=== PATIENT | male | born 1990 | race Caucasian/White ===

== ENCOUNTER 2024-08-14 09:22 | Emergency (ER) | payer SELFPAY ==
--- OUTSIDE RECORDS SUMMARY | 2024-08-14 09:33 | XMS_ITS | Referral Summary ---
Author Organization [facility] Address [address] [place] [address] Care Team Providers Care Structural Manager Name Role Phone Dunia Ratliff Primary Care Provid er Allergies No known active allergies Medications amoxicillin (AMOXIL) 500 mg tablet TAKE 2 TABLETS NOW THEN 1 TABLET BY MOUTH THREE TIMES DAILY FOR 7 DAYS 01/05/2022 Active Active Problems Problem Noted Date Diagnosed Date Asthma (CMD) 01/18/2022 Immunizations Immunization Administration Dates Next Due Dtap, Unspecified 11/27/1997, 7,07/11/1992,05/14,03/25/1992 Hep B, Adolescent or Pediatric 10/08/2007 Hepatitis A pediatric/adoles cent (VAQTA PEDS) 1Y-18Y 10/08/2007 HiB, Unspecified 07/11/1992,05/14/1992, 3 Influenza,split virus, trivalent, PF 02/18/2009 MMR 11/18/1996,12/28/1992 Meningococcal MCV4P 10/08/2007 Moderna SARS-CoV-2 Primary S eries 12+ yrs 12/04/2020,11/06/2020 Novel Influenza [id number] 02/18/2009 Pneumococcal Conjugate PCV 7 01/24/2005 Polio, Unspecified 11/05/2001, 8,11/18/1996,05/14,03/25/1992 TDAP VACCINE (BOOSTRIX,ADACEL) 7Y+ 10/08/2007 Varicella SQ (VARIVAX) 1Y+ 10/08/2007,11/18/1996 Social History Tobacco Use Types Packs/Day Years Used Date Smoking Tobacco: Never Smokeless Tobacco: Never Tobacco Cessation:Counseling Given: Not Answered Alcohol Use Standard Drinks/Week Comments Not Currently 0 (1 standard drink = 0.6 oz pur e alcohol) PHQ-2 Answer Date Recorded Patient Health Questionnaire-2 Score 2 01/18/2022 Sex and Gender Information Value Date Recorded Sex Assigned at Male 04/07/2018 1:00 PM EST Legal Sex Male 4:07 PM EDT Gender Identity Not on file Sexual Orientation Not on file Last Filed Vital Signs Vital Sign Reading Time Taken Comments Blood Pressure 128/74 01/18/2022 8:00 AM EST Pulse 66 01/18/2022 8:00 AM EST Temperature 37.1 C (98.7 F) 01/18/2022 8:00 AM EST Respiratory Rate 16 01/18/2022 8:00 AM EST Oxygen Saturation 98% 01/18/2022 8:00 AM EST Inhaled Oxygen Concentration - - Weight 75.8 kg (167 lb) 01/18/2022 8:00 AM EST Height 177.8 cm (5' 10) 01/18/2022 8:00 AM EST Body Mass Index 23.96 01/18/2022 8:00 AM EST Plan of Treatment Not on file Insurance BS Care Teams Structural Manager Relationship Specialty Start Date End Date Dunia Ratliff PA [address] [facility] [address] [place] [address] PCP - General Physician Manager Policy 01/18/22
--- OUTSIDE RECORDS SUMMARY | 2024-08-14 09:33 | XMS_ITS | Clinical Summary ---
Author Organization Replaced By [facility] Address [address] [place] [id number] Care Team Providers Care Diplomatic Interpreter/Translator Name Role Phone Dunia Ratliff Primary Care [...] S eries 12+ yrs 12/04/2020,11/06/2020 Novel Influenza [id number] 02/18/2009 Pneumococcal Conjugate PCV 7 01/24/2005 Polio, Unspecified 11/05/2001, 8,11/18/1996,05/14,03/25/1992 TDAP VACCINE (BOOSTRIX,ADACEL) 7Y+ 10/08/2007 Varicella SQ (VARIVAX) 1Y+ 10/08/2007,11/18/1996 Family History Medical History Relation Comments Heart disease Mother Hypertension Mother Stomach cancer Paternal Aunt Relation Status Comments Mother Paternal Aunt Social History Tobacco Use Types Packs/Day Years [...] 01/18/2022 8:00 AM EST Plan of Treatment Health Maintenance Due Date Last Done Comments HIV Screening 12/17/2009 Hepatitis C Screening 12/17/2009 Pneumococcal Vaccine: Pediatrics (0 to 5 years) and At-Risk Patients (6-49 Years) (1 of 2 - PCV) 12/17/2010 01/24/2005 DTaP/Tdap/Td Vaccines (7 - Td or Tdap) 10/07/2017 10/08/2007, 11/27/1997, 11/18/1996, Additional history exists Comprehensive Annual Visit 01/18/2023 01/18/2022 Depression Screening 01/18/2023 01/18/2022, 01/19/20 22 Influenza Vaccine (#1) 2023 02/18/2009, 2008 COVID-19 Vaccine (3 - season) 2023 12/04/2020, 11/06/2020 ZOSTER VACCINE (1 of 2) 12/17/2041 10/08/2007, 11/18 Adult RSV (60+ Years or ) (1 - 1-dose 75+ series) 12/17/2066 HIB Vaccines Aged Out 07/11/1992, 06/1992, 03/25/1992 No longer eligible based on patient's age to complete this topic IPV Vaccines Completed 11/05/2001, 11/11, 11/18/1996, Additional history exists Hepatitis A Vaccines Discontinued 10/08/2007 Hepatitis B Vaccines Discontinued 10/08/2007 Meningococcal Conjugate (ACWY) Vaccine Aged Out 10/08/2007 No longer eligible based on patient's age to complete this topic Varicella Vaccines Completed 10/08/2007, 11/18/1996 HPV Vaccines Aged Out No longer eligi ble based on patient's age to complete this topic Meningococcal B Vaccine Aged Out No l onger eligible based on patient's age to complete this topic Rotavirus Vaccines Aged Out No longer eligible based on patient's age to complete this topic Insurance Care Teams Diplomatic Interpreter/Translator Relationship Specialty Start Date End Date Dunia Ratliff PA [address] [facility] [address] [facility] [place] [address] PCP - General Physician Ophthalmologist Retina Specialist 01/18/22
[2024-08-14 09:43] VITALS: BP 127/81; PULSE 74; RESP 16; TEMP 36.8; O2SAT 97
--- NOTE | 2024-08-14 10:23 | ED_ITS ---
HPI - Dental/Oral General Chief complaint: Dental/Oral Stated complaint: Dental Pain History of Present Illness HPI Narrative: Patient is a 33-year-old male who presents to urgent care with complaints of L upper tooth pain. He reports the symptoms started yesterday. Pt is here from out of town so he does not have a dentist or primary care provider. He reports the painful tooth in his top #3 tooth. Pt denies any recent fevers, difficulty swallowing, or neck stiffness. He is unsure whether or not he has had previous dental work done on this tooth. Related Data Allergies Allergy/AdvReac Type Severity Reaction Status Date / Time ibuprofen AdvReac Intermediate chest pain Verified 08/14/24 10:22 Review of Systems Review of Systems: All systems reviewed & are unremarkable except as noted in HPI and below Exam Narrative: GENERAL: Well appearing, well-nourished, non-toxic, in no acute distress. HEAD: , visible decay to tooth #3, gum surrounding #3 red and swollen with visible abscess to outer gum. No visible discharge or bleeding. NECK: Supple. No adenopathy, no masses. RESPIRATORY: Airway patent, respirations nonlabored. Clear to auscultation bilaterally, no rales, rhonchi, wheezing. CARDIOVASCULAR: Regular rate and rhythm without murmurs, rubs, or gallops. Peripheral pulses 2+ and equal bilaterally. ABDOMINAL: Soft, nontender, nondistended, no hepatosplenomegaly. Normoactive BS. MUSCULOSKELETAL: Moves all extremities. Strength/ROM intact without gross deformities. SKIN: Warm, dry, normal color. No rashes. Course Course Level of Care: Express Care Visit Vital Signs Vital signs: Vital Signs Temperature 36.8 C 08/14/24 09:43 Pulse Rate 74 08/14/24 09:43 Respiratory Rate 16 08/14/24 09:43 Blood Pressure 127/81 08/14/24 09:43 Pulse Oximetry 97 08/14/24 09:43 Oxygen Delivery Room Air 08/14/24 09:43 Temperature 36.8 C 08/14/24 09:43 Pulse Rate 74 08/14/24 09:43 Respiratory Rate 16 08/14/24 09:43 Blood Pressure 127/81 08/14/24 09:43 Pulse Oximetry 97 08/14/24 09:43 Oxygen Delivery Room Air 08/14/24 09:43 MDM - Dental/Oral MDM Narrative Medical decision making narrative: Patient is a 33-year-old male who presents to urgent care with complaints of L upper tooth pain. He reports the symptoms started yesterday. Pt is here from out of town so he does not have a dentist or primary care provider. He reports the painful tooth in his top #3 tooth. Pt denies any recent fevers, difficulty swallowing, or neck stiffness. He is unsure whether or not he has had previous dental work done on this tooth. Pt has been taking Tylenol for pain control. His aunt gave him a [place] and Gabapentin last night to try to help relieve his pain. Diagnosis: tooth abscess, left tooth pain Consults: dentist (outpatient) Patient Education/Shared MDM: Results of examination shared with patient. He endorses he's allergies to ibuprofen, so pt was advised to take Tylenol for pain control. Pt will also be discharged home with a prescription for viscous lidocaine. Patient strongly advised to maintain hydration status upon discharge and follow-up with a dentist as soon as possible. He will be discharged home with a prescription for Augmentin. Strict return precautions provided. Patient verbalized understanding and is in agreement with plan. Vital signs stable at time of discharge. All questions answered. Differential Diagnosis Differential diagnosis: Likely dental caries, toothache, dental abscess and fracture of tooth Discharge Plan Discharge Clinical Impression: Dental abscess, Dental caries, Toothache Patient Disposition: Home Condition: Stable Instructions: Antibiotic Form, Dental Abscess (ED) Additional Instructions: Please present to the ER with any worsening symptoms. Follow-up with a primary care provider and dentist as soon as possible. Take all medications as prescribed. You may continue taking Tylenol for pain control. Please complete your full dose of antibiotics. You may also use viscous lidocaine for pain control. Patient Language: Romanian Prescriptions: New amoxicillin-pot clavulanate 875-125 mg tablet 1 tablet PO Q12H Qty: 20 0RF lidocaine HCl [Lidocaine Viscous] 2 % solution 1 applic mucous membrane QID PRN (Reason: pain) Qty: 300 0RF Follow-up/Referrals: PHYSICIAN,CLOTH BLEACHING RANGE BACK TENDER [Primary Care Provider] - Stand Alone Forms: Work/School Release IP Time of Disposition: 10:33
== END 2024-08-14 10:36 | disposition home or self-care (01) ==
PROVIDERS: Emergency Provider Registered Nurse
DX: K04.7 Periapical abscess without sinus (principal); K02.9 Dental caries, unspecified
CPT/HCPCS: 99203; G0463

== ENCOUNTER 2024-10-16 08:07 | Emergency (ER) | payer OTHER, SELFPAY ==
--- OUTSIDE RECORDS SUMMARY | 2024-10-16 08:11 | XMS_ITS | Referral Summary ---
Author Organization [facility] Address [address] [place] [address] Care Team Providers Care Gill Tender Name Role Phone Dunia Ratliff Primary Care [...] S eries 12+ yrs 12/04/2020,11/06/2020 Novel Influenza [id number] 02/18/2009 Pneumococcal Conjugate PCV 7 01/24/2005 Polio, [...] Not on file Insurance BS Care Teams Gill Tender Relationship Specialty Start Date End Date Dunia Ratliff PA [address] [facility] [address] [place] [address] PCP - General Physician Object Oriented Programmer 01/18/22
--- OUTSIDE RECORDS SUMMARY | 2024-10-16 08:11 | XMS_ITS | Clinical Summary ---
Author Organization [facility] Address [address] [place] [id number] Care Team Providers Care Shipping And Receiving Clerk Name Role Phone Dunia Ratliff Primary Care [...] S eries 12+ yrs 12/04/2020,11/06/2020 Novel Influenza [id number] 02/18/2009 Pneumococcal Conjugate PCV 7 01/24/2005 Polio, [...] 10/07/2017 10/08/2007, 11/27/1997, 11/18/1996, Additional history exists HPV Vaccines (1 - 3-dose SCDM series) 12/17/2018 Comprehensive Annual Visit 01/18/2023 01/18/2022 Depression Screening 01/18/2023 01/18/2022, 01/19/20 22 COVID-19 Vaccine ( - season) 2023 12/04/2020, 11/06/2020 Influenza Vaccine (#1) 2024 02/18/2009, 2008 Adult RSV (60+ Years or ) (1 [...] this topic Varicella Vaccines Completed 10/08/2007, 11/18/1996 Meningococcal B Vaccine Aged Out No l onger eligible based on patient's age to complete this topic Rotavirus Vaccines Aged Out No longer eligible based on patient's age to complete this topic Insurance BS Care Teams Shipping And Receiving Clerk Relationship Specialty Start Date End Date Dunia Ratliff PA [address] [place] [id number] PCP - General Physician Call Taker 01/18/22
[2024-10-16 08:13] VITALS: BP 136/79; PULSE 60; RESP 16; TEMP 36.4; O2SAT 100
--- NOTE | 2024-10-16 08:14 | ED_ITS ---
HPI - Back Pain/Injury General Chief Complaint: Wound/Laceration Stated Complaint: Neck and Back Pain Time Seen by Provider: 10/16/24 08:10 Source: patient Mode of arrival: ambulatory Limitations: no limitations History of Present Illness HPI Narrative: Patient is a 33-year-old male who presents with neck pain after pulling something heavy at work yesterday. Patient has taken naproxen, Tylenol and used ice and heat with only mild relief. Patient denies any numbness, tingling or weakness to extremities. Denies any trauma to neck. Related Data Allergies Allergy/AdvReac Type Severity Reaction Status Date / Time ibuprofen AdvReac Intermediate chest pain Verified 10/16/24 08:15 Review of Systems Review of Systems: All systems reviewed & are unremarkable except as noted in HPI and below Constitutional: Constitutional: Denies body ache(s), Denies chills, Denies fatigue, Denies fever(s), Denies headache(s), Denies malaise and Denies weakness Eyes: Eyes: Denies blurry vision, Denies irritation and Denies loss of vision ENT: Denies otalgia, Denies headache(s), Denies nasal discharge, Denies sinus pain and Denies sore throat Cardiovascular: Cardiovascular: Denies chest pain, Denies irregular heart rhythm and Denies dyspnea Respiratory: Respiratory: Denies dyspnea Gastrointestinal: Gastrointestinal: Denies abdominal pain, Denies melena, Denies hematochezia, Denies diarrhea, Denies nausea and Denies vomiting Musculoskeletal: Musculoskeletal: Denies back pain, Denies myalgias, Denies arthralgias and Reports neck pain Integumentary/Breasts: Skin/Breast: Denies pruritus and Denies rash Neurologic: Denies headache(s), Denies loss of vision and Denies weakness Psychiatric: Psychiatric: Reports no additional psychiatric complaints Endocrine: Endocrine: Denies fatigue PMFSH Comments At time of signature, agree with nursing past medical, surgical, social and family history. There is no relevant family history pertinent to the presenting complaint. Exam Const: General: cooperative, healthy appearing, comfortable, no acute distress and well nourished Nutritional Appearance: well nourished Orientation/c onsciousness: patient oriented x3 Limitations: no limitations HENMT: Head: normal to inspection, normocephalic and atraumatic Ears: hearing grossly normal bilaterally and external ears normal Face/Nose/Sinus: Normal external nose present, normal facial exam and face symmetric Face and sinus: normal facial exam and face symmetric Mouth: Yes lip normal Eyes: General: appearance normal, both eyes and all related structures Alignment and Position: alignment normal and position normal Periorbital: periorbital findings normal Eyelids: eyelids normal Pupils: Equal, round and reactive pupils present EOM: EOMs intact bilaterally Neck: Neck: normal visual inspection, full ROM and supple Chest: Chest palpation & inspection: normal inspection of the chest Resp: Effort & Inspection: normal respiratory effort and able to speak in complete sentences Auscultation: clear to auscultation bilaterally Cardio: Rate: regular rate Rhythm: regular rhythm Heart sounds: S1 normal heart sound present and S2 normal heart sound present GI: Inspection: normal to inspection Back/Spine/Pelvis: Cervical Spine: normal cervical lordosis, cervical muscular tenderness (Bilaterally, left worse than right), pain with cervical ROM (Muscular pain with looking up) and No Cervical spine tenderness Thoracic/Lumbar Spine: thoracic and lumbar spine normal to inspection, thoraco- lumbar ROM normal, No paraspinal muscle tenderness, No thoracic spinal tenderness and No lumbar spinal tenderness Skin: General skin exam: normal color and no rashes or lesions noted Neuro: General: patient oriented x3 and moves all extremities Cranial nerves: Yes Equal, round and reactive pupils present Speech: normal speech Gait exam (Neuro): Normal gait present Motor exam (neuro): 5/5 motor strength present throughout, Normal motor muscle tone present throughout and Motor abnormalities not present Sensory Exam: normal sensation Extrem: General: normal to inspection, full ROM and no edema Psych: Appearance: grossly normal and well kempt Mental Status: mental status grossly normal Speech and movement: Normal speech and movement present Affect: normal affect Attitude: cooperative Thought process: Normal thought process present Course Course Emergency Course: Patient is aware of diagnosis, understands and agrees to treatment plan. Anticipatory guidance given. Patient agrees to follow-up as directed and is aware of reasons to seek care at the emergency department. Portions of this record may have been created with voice recognition software Level of Care: Express Care Visit Vital Signs Vital signs: Reviewed MDM - Back Pain/Injury MDM Narrative Medical decision making narrative: No surface trauma, open wounds, or spasm, trachea midline, nontender over larynx. No bony tenderness, step-off or deformity to firm palpation at the posterior midline. FROM with mild pain along with soft tissue/muscle tenderness bilaterally Pt well hydrated appearing, in no respiratory distress, hemodynamically stable. Recommend supportive care. The patient is stable at time of discharge the clinical impression was discussed and the patient was given the opportunity to ask questions, which were addressed as completely as possible given the i nformation available at present. Anticipatory guidance and return to care precautions were discussed and the importance of primary care follow-up was stressed and encouraged. The patient voiced understanding of the plan, indications to return, and the need for follow-up. Exam findings show no acute concerns or changes Patient is appropriate for outpatient treatment and follow-up. Differential Diagnosis Differential diagnosis: Likely other (Cervical strain, cervical radiculopathy) Medical Records Attestation: I reviewed the patient's medical records. Discharge Plan Discharge Clinical Impression: Acute strain of neck muscle Qualifiers: Encounter type: initial encounter Qualified Code(s): S16.1XXA - Strain of muscle, fascia and tendon at neck level, initial encounter Patient Disposition: Home Condition: Stable Instructions: Cervical Strain (ED) Additional Instructions: Take Steroids in the morning with food, take muscle relaxers every 8 hours as needed for muscle spasm. do not drive or make any important decisions while on this medication for it can make you drowsy Exercise:Combine aerobic exercise, like walking or swimming, with specific exercises to keep the muscles in your back and abdomen strong and flexible.bed rest is not recommended. Proper Lifting:Be sure to lift heavy items with your legs, not your back. Do not bend over to pick something up. Keep your back straight and bend at your knees. Weight:Maintain a healthy weight. Being overweight puts added stress on your lower back. Avoid Smoking:Both the smoke and the nicotine cause your spine to age faster than normal. Proper Posture:Good posture is important for avoiding future problems. A therapist can teach you how to safely stand, sit, and lift. Use warm moist heat or ice to help with pain. Follow up with Primary provider in 2-3 days, This may become a chronic condition and they will be the one to help manage your pain and order additional testing. Follow-up with your doctor for further care and evaluation or seek ER if you develop problems with bladder/bowel function, weakness or loss of feeling in one or both of your legs. Patient Language: Wolof Prescriptions: New prednisone 20 mg tablet 40 mg PO DAILY 5 Days Qty: 10 0RF baclofen 10 mg tablet 10 mg PO TID 5 Days Qty: 15 0RF Follow-up/Referrals: Ulisses Jaramillo MD [Physician] - 3 Days (Establish care) Stand Alone Forms: Work/School Release IP Time of Disposition: 08:22
--- OUTSIDE RECORDS SUMMARY | 2024-10-16 08:15 | XMS_ITS | Clinical Summary ---
Author Organization [facility] Address [address] [place] [address] Care Team Providers Care Role Player Name Role Phone Unavailable Primary Care Provider Unavailabl e Allergies No known active allergies Medications naproxen (NAPROSYN) 500 mg tablet Take one tablet (500 mg dose) by mouth 2 (two) times a day as needed (for pain; take with food). 20 tablet 08/04/2020 Active Social History Tobacco Use Types Packs/Day Years Used Date Smoking Tobacco: Never Assessed HITS Answer Date Recorded Physically Hurt Not on file 06/15/2022 Insult or Talk Down To Not on file 3 Threaten Physical Harm Not on file 3 Scream or Curse Not on file 06/15/2022 Social Network Answer Date Recorded Social Network Not on file 07/20/2022 Sex and Gender Information Value Date Recorded Sex Assigned at Not on file Legal Sex Male 10:07 PM EST Gender Identity Not on file Sexual Orientation Not on file Last Filed Vital Signs Vital Sign Reading Time Taken Comments Blood Pressure 139/81 08/04/2020 9:59 PM EDT Pulse 70 08/04/2020 9:59 PM EDT Temperature 36.7 C (98.1 F) 08/04/2020 5:11 PM EDT Respiratory Rate 20 08/04/2020 9:59 PM EDT Oxygen Saturation 97% 08/04/2020 9:59 PM EDT Inhaled Oxygen Concentration - - Weight 102.1 kg (225 lb) 08/04/2020 5:11 PM EDT Height 175.3 cm (5' 9) 08/04/2020 5:11 PM EDT Body Mass Index 33.23 08/04/2020 5:11 PM EDT Plan of Treatment Health Maintenance Due Date Last Done Comments DTaP/Tdap/Td Vaccines (1 - Tdap) 12/17/2010 ALT Level 05/07/2021 08/04/2020 AST Level 05/07/2021 08/04/2020 Creatinine Level 05/07/2021 08/04/2020 Hemoglobin 05/07/2021 08/04/2020 Potassium Level 05/07/2021 08/04/2020 COVID-19 Vaccine (1 - 2023-2 5 season) 2023 Zoster Vaccine (1 of 2) 12/17/2041 HPV Vaccine (No Doses Required) Completed Hepatitis A Vaccine Aged Out No longe r eligible based on patient's age to complete this topic Meningococcal B Vaccine Aged Out No l onger eligible based on patient's age to complete this topic Meningococcal Conjugate Vaccine Aged Out No longer eligible based on patient's age to complete this topic Pneumococcal Vaccine: Pediat rics and At Risk Patients Aged Out No longer eligible based on patient's age to complete this topic Procedures Procedure Name Priority Date/Time Associated Diagnosis Comments CBC AND DIFFERENTIAL STAT 08/04/2020 5:45 PM EDT COMPREHENSIVE METABOLIC PANEL STAT 08/04/2020 5:45 PM EDT from Last 3 Months or Most Recently Relevant to Health Maintenance Results * CBC And Differential (08/04/2020 5:45 PM EDT) WBC 8.0 5.1 - 10.8 thou/mcL 08/04/2020 6:08 PM EDT [facility] RBC 4.93 4.05 - 5.64 million/mc L 08/04/2020 6:08 PM EDT [facility] HGB 14.7 13.5 - 17.5 gm/dL 08/04/2020 6:08 PM EDT [facility] HCT 41.9 40.5 - 52.5 % 08/04/2020 6:08 PM EDT [facility] MCV 85 83 - 97 fL 08/04/2020 6:08 PM [facility] MCH 29.8 28.0 - 33.0 pg 08/04/2020 6:08 PM [facility] MCHC 35.1 32.0 - 36.0 gm/dL 08/04/2020 6:08 PM [facility] Plt Ct 307 150 - 400 thou/[facility] 08/04/2020 6:08 PM [facility] RDW SD 38.1 36.0 - 47.0 fL 08/04/2020 6:08 PM [facility] MPV 9.4 8.9 - 11.0 fL 08/04/2020 6:08 PM [facility] NRBC% 0.0 0 /100WBC 08/04/2020 6:08 PM [facility] Absolute NRBC Count 0.000 0 thou/[facility] 08/04/2020 6:08 PM [facility] NEUTROPHIL % 54.7 50.0 - 70.0 % 08/04/2020 6:08 PM [facility] LYMPHOCYTE % 32.2 25.0 - 40.0 % 08/04/2020 6:08 PM [facility] MONOCYTE % 7.5 4.0 - 12.0 % 08/04/2020 6:08 PM [facility] Eosinophil % 4.6 1.0 - 6.0 % 08/04/2020 6:08 PM [facility] BASOPHIL % 0.6 0.0 - 2.0 % 08/04/2020 6:08 PM [facility] IG% 0.400 0.001 - 0.429 % 08/04/2020 6:08 PM [facility] ABSOLUTE NEUTROPHIL COUNT 4.37 1.50 - 7.50 thou/[facility] 08/04/2020 6:08 PM [facility] ABSOLUTE LYMPHOCYTE COUNT 2.6 1.0 - 4.5 thou/[facility] 08/04/2020 6:08 PM [facility] Absolute Monocyte Count 0.6 0.1 - 0.8 thou/[facility] 08/04/2020 6:08 PM [facility] Absolute Eosinophil Count 0.4 0.0 - 0.5 thou/[facility] 08/04/2020 6:08 PM EDT [facility] Absolute Basophil Count 0.1 0.0 - 0.2 [facility] 08/04/2020 6:08 PM EDT [facility] Absolute Immature Granulocyte Count 0.030 0.001 - 0.031 [facility] 08/04/2020 6:08 PM EDT [facility] Blood Venipuncture / Unknown 08/04/2020 5:45 PM EDT 08/04/2020 5:59 PM EDT us Danni Anand PA-C LAB BLOOD ORDERABLES F inal Result [facility] [address] [place] [address], * (ABNORMAL) Comprehensive Metabolic Panel (08/04/2020 5:45 PM EDT) Na 138 136 - 146 mmol/L 08/04/2020 6:38 PM [facility] Potassium 3.8 3.7 - 5.4 mmol/L 08/04/2020 6:38 PM [facility] Cl 102 97 - 108 mmol/L 08/04/2020 6:38 PM [facility] CO2 24 20 - 32 mmol/L 08/04/2020 6:38 PM [facility] Glucose 83 65 - 99 mg/dL 08/04/2020 6:38 PM [facility] BUN 11 6 - 20 mg/dL 08/04/2020 6:38 PM [facility] Creatinine 1.12 0.76 - 1.27 mg/dL 08/04/2020 6:38 PM [facility] Ca 9.3 8.7 - 10.2 mg/dL 08/04/2020 6:38 PM [facility] ALK PHOS 70 25 - 150 U/L 08/04/2020 6:38 PM [facility] T Bili 0.82 0.00 - 1.20 mg/dL 08/04/2020 6:38 PM [facility] Total Protein 7.6 6.0 - 8.5 gm/dL 08/04/2020 6:38 PM [facility] Alb 4.8 3.5 - 5.5 gm/dL 08/04/2020 6:38 PM [facility] GLOBULIN 2.8 1.5 - 4.5 gm/dL 08/04/2020 6:38 PM [facility] ALBUMIN/GLOBULI N RATIO 1.7 1.1 - 2.5 08/04/2020 6:38 PM [facility] BUN/CREAT RATIO 9.8(L) 11.0 - 26.0 08/04/2020 6:38 PM [facility] ALT 30 0 - 55 U/L 08/04/2020 6:38 PM [facility] AST 24 0 - 40 U/L 08/04/2020 6:38 PM [facility] GFR- 103 mL/min/1.7 3m2 08/04/2020 6:38 PM [facility] Comment: -[place]: Normal GFR (glomerular filtration rate) > 60 mL/min/1.73 meters squared. < 60 may include impaired kidney function based on creatinine, age, legal sex, and race normalized to accepted average body surface area GFR Non 89 mL/min/1.7 3m2 08/04/2020 6:38 PM [facility] Comment: Non -[place]: Normal GFR (glomerular filtration rate) > 60 mL/min/1.73 meters squared. < 60 may include impaired kidney function based on creatinine, age, legal sex, and race normalized to accepted average body surface area AGAP 12 7 - 16 mmol/L 08/04/2020 6:38 PM [facility] GFR Non UNK 08/04/2020 6:38 PM [facility] Comment: Non -[place] UNK/Female: Normal GFR (glomerular filtration rate) > 60 mL/min/1.73 meters squared. < 60 may include impaired kidney function based on creatinine, age, legal sex, and race normalized to accepted average body surface area GFR Non UNK 08/04/2020 6:38 PM [facility] Comment: Non -[place] UNK/Male: Normal GFR (glomerular filtration rate) > 60 mL/min/1.73 meters squared. < 60 may include impaired kidney function based on creatinine, age, legal sex, and race normalized to accepted average body surface area GFR K 08/04/2020 6:38 PM EDT [facility] Comment: -[place] UNK/Female: Normal GFR (glomerular filtration rate) > 60 mL/min/1.73 meters squared. < 60 may include impaired kidney function based on creatinine, age, legal sex, and race normalized to accepted average body surface area GFR [facility] 08/04/2020 6:38 PM EDT [facility] Comment: -[place] UNK/Male: Normal GFR (glomerular filtration rate) > 60 mL/min/1.73 meters squared. < 60 may include impaired kidney function based on creatinine, age, legal sex, and race normalized to accepted average body surface area Blood Venipuncture / Unknown 08/04/2020 5:45 PM EDT 08/04/2020 5:59 PM EDT Danni Anand PA-C LAB BLOOD ORDERABLES F inal Result [facility] [address] [place] [address], from Last 3 Months or Most Recently Relevant to Health Maintenance Insurance
== END 2024-10-16 08:25 | disposition home or self-care (01) ==
PROVIDERS: Emergency Provider Nurse Practitioner Family
DX: S16.1XXA Strain of muscle, fascia and tendon at neck level, initial encounter (principal); X50.0XXA Overexertion from strenuous movement or load, initial encounter; Y99.0 Civilian activity done for income or pay
CPT/HCPCS: 99213; G0463